=== PATIENT | male | born 1975 | race Two or more races ===

== ENCOUNTER 2018-07-04 13:10 | Day surgery (SDC) | payer BC ==
[2018-07-04] VITALS (12 sets, daily range): BP systolic 92–124; BP diastolic 53–88; PULSE 67–89; RESP 9–18; Ht 188 cm; Wt 83.1 kg
[~2018-07-04] VITALS: Ht 188 cm; Wt 83.1 kg
[2018-07-04] MEDS ORDERED: STEGLATRO PO (14:13)
[2018-07-04] MEDS ORDERED: METF100010 PO (14:13)
[2018-07-04] MEDS ORDERED: ASPI325T30 PO (14:13)
[2018-07-04] MEDS ORDERED: LISI-471 PO (14:13)
[2018-07-04] MEDS ORDERED: SOD CHLORIDE 0.9% 1,000 ML IV SCH (14:30)
[2018-07-04] MEDS ORDERED: PROPOFOL 20 ML ONE (15:05)
[2018-07-04] MEDS ORDERED: FENTAnyl 50 MCG/ML VIAL ONE (15:05)
[2018-07-04] MEDS ORDERED: CEFAZOLIN 1 GM INJ ONE (15:05)
[2018-07-04] MEDS ORDERED: MIDAZOLAM 1 MG/ML 2 ML INJ ONE (15:05)
[2018-07-04] MEDS ORDERED: LIDOCAINE 100 MG SYRINGE ONE (15:05)
[2018-07-04] MEDS ORDERED: BUPIVACAINE 0.5%/EPI (SDV) 10 ML INJ ONE (15:10)
[2018-07-04] MEDS ORDERED: BUPIVACAINE 0.5%/EPI (SDV) 30 ML INJ ONE (15:10)
--- NOTE | 2018-07-04 15:17 | PREAC ---
Date/Time of Note Date/Time of Note DATE: 07/04/18 TIME: 15:15 Anesthesia Eval and Record Evaluation Time Pre-Procedure Interview DATE: 07/04/18 TIME: 15:15 Age 42 Sex male NPO: 8 hrs Preoperative diagnosis Forehead mass Planned procedure Excision of Forehead mass Past Medical History Past Medical History: Includes Cardio: HTN Endo: Diabetes Surgery & Anesthesia Issues No known issue Meds Anticoagulation: No Beta Huseyin within 24 hr: No Reason Beta Huseyin not given: Pt. not on B-Huseyin Reported Medications Aspirin* (Aspirin*) 325 Mg Tablet, 81 MG PO DAILY, TAB 07/04/18 [Steglatro] No Conflict Check, 5 MG PO DAILY 07/04/18 Metformin Hcl* (Metformin Hcl*) 1,000 Mg Tablet, 1000 MG PO WITH BREAKFAST DINNE, #30 TAB 07/04/18 Lisinopril* (Lisinopril*) 20 Mg Tablet, 20 MG PO DAILY, #30 TAB 07/04/18 Current Medications Sodium Chloride 1,000 ml @ 20 mls/hr Q24H IV Last administered on 07/04/18at 14:34; Admin Dose 20 MLS/HR; Start 07/04/18 at 14:30 Meds reviewed: Yes Allergies Coded Allergies: No Known Allergy (Unverified , 07/04/18) Allergies Reviewed: Yes Labs/Studies Labs Reviewed: Reviewed by anesthesiologist test: N/A Pre-procedure Exam Last vitals Vital Signs Date Temp Pulse Resp B/P (MAP) Pulse Ox O2 O2 Flow FiO2 Time Delivery Rate 07/04/18 97.8 89 16 119/88 100 Room Air 14:00 (98) Airway: Adequate mouth opening Mallampati: Mallampati I Teeth: Normal Lung: Normal Heart: Normal ASA Physical Status ASA physical status: 2 Emergency: None Planned Anesthetic General/MAC: LMA Pre-operative Attestations Prior to commencing anesthesia and surgery, the patient was re-evaluated, there was verification of: *The patient's identity *The results of appropriate recent lab work and preoperative vital signs *The above evaluation not changing prior to induction *Anesthetic plan, risk benefits, alternative and complications discussed with patient/family; questions answered; patient/family understands, accepts and wishes to proceed. AROLDO HARLEY MD July 04, 2018 15:17
[2018-07-04] MEDS ORDERED: LIDOCAINE 1% (MPF) 30 ML INJ ONE (15:32)
[2018-07-04] MEDS ORDERED: POVIDONE IODINE 10% 28.4 GM OINT ONE (15:33)
[2018-07-04] MEDS ORDERED: SEVOFLURANE 15 MIN ONE (16:00)
[2018-07-04] MEDS ORDERED: ONDANSETRON 4 MG INJ ONE (16:00)
[2018-07-04] MEDS ORDERED: DEXAMETHASONE 4 MG/ML 5 ML INJ ONE (16:00)
[2018-07-04] MEDS ORDERED: MEPERIDINE 25 MG INJ IV PRN (16:30)
[2018-07-04] MEDS ORDERED: HYDROmorphONE 1 MG/5 ML IV SYRINGE IV PRN ×3 (16:30)
[2018-07-04] MEDS ORDERED: DIPHENHYDRAMINE 50 MG INJ IV PRN (16:30)
[2018-07-04] MEDS ORDERED: ONDANSETRON 4 MG INJ IV PRN ×2 (16:30)
--- NOTE | 2018-07-04 16:30 | HPN ---
Date/Time of Note Date/Time of Note DATE: 07/04/18 TIME: 16:30 Interval H&P Admission Note Pt. seen H&P reviewed: No system changes KIMI LUNDY MD July 04, 2018 16:30
--- NOTE | 2018-07-04 16:35 | OPR ---
Date/Time of Note Date/Time of Note DATE: 07/04/18 TIME: 16:32 Operative Report Procedure Date: July 04, 2018 Preoperative Diagnosis Forehead lesion Postoperative Diagnosis Forehead lesion, subfascial, 3 cm Operation/Procedure Performed 1. Excision of subfascial forehead lesion, 3 cm 2. Local anesthetic injection, [id number] Surgeon Kimi Lundy MD Rivet Bucker None Anesthesia Type: general (And local) Estimated Blood Loss: 0 - 10 ml's Transfusion none Specimen Lesion Grafts/Implants none Tubes/Drains None Complications none Pt Condition Post Procedure: stable Disposition: PACU Indications Lesion growing and causing discomfort and interfering with lifestyle. Here for excision. Risks include but are not limited to bleeding, infection, abscess, seroma, chronic pain, chronic wound, need for re-operations or further surgeries, [place], stroke, PE, DVT, pneumonia, organ failures, or even . Procedure Description Patient was brought in and placed supine on the operating table. SCDs were placed. Preoperative members administered. After induction of anesthesia all pressure points were well-padded. Timeout was performed. He is prepped and draped in the usual sterile fashion with Betadine. Areas marked and local anesthetic injection is performed. Incision was made into the subcutaneous tissue and the lesion is found to be subfascial just over the wound. Fascia is open and the lesion was fully excised circumferentially off of the bone. There is complete hemostasis. Wound is fully irrigated. Fascia was closed with 2-0 Vicryl. Wound is closed with 2-0 Vicryl dermal interrupted. Skin is closed with 4-0 Monocryl subcuticular in a running fashion. Dermabond is applied. Dressing is applied. Patient tolerated procedure well and taken to recovery room in stable condition. KIMI LUNDY MD July 04, 2018 16:35
--- NOTE | 2018-07-04 17:38 | PAC ---
Date/Time of Note Date/Time of Note DATE: 07/04/18 TIME: 17:37 Post-Anesthesia Notes Post-Anesthesia Note Last documented vital signs Vital Signs Date Temp Pulse Resp B/P (MAP) Pulse Ox O2 O2 Flow FiO2 Time Delivery Rate 07/04/18 97.6 74 14 124/76 100 Room Air 17:35 (92) 07/04/18 8.0 16:44 Activity: WNL Respiratory function: WNL Cardiovascular function: WNL Mental status: Baseline Pain reasonably controlled: Yes Hydration appropriate: Yes Nausea/Vomiting absent: Yes AROLDO HARLEY MD July 04, 2018 17:37
== END 2018-07-04 17:45 | disposition home or self-care (01) ==
LOC: SDS 13:10
PROVIDERS: ATTEND Surgery
DX: L98.9 Disorder of the skin and subcutaneous tissue, unspecified (principal); I10 Essential (primary) hypertension; E11.9 Type 2 diabetes mellitus without complications; E78.5 Hyperlipidemia, unspecified; Z82.49 Family history of ischemic heart disease and other diseases of the circulatory system; Z83.3 Family history of diabetes mellitus
CPT/HCPCS: 21012; 82962; 88304; J0690; J1100; J2001; J2250; J2405; J3010